=== PATIENT | female | born 1970 | race Caucasian/White ===

== ENCOUNTER 2017-10-17 23:18 | Emergency (ER) | payer OTHER ==
[2017-10-17] MEDS ORDERED: Sodium Chloride 0.9% 1,000 ML IV ONE (23:49)
--- NOTE | 2017-10-17 23:49 | C.PDOC ---
History Of Present Illness The patient presents to the ED for evaluation of abdominal pain, nausea, vomiting and diarrhea which began yesterday. Patient states she ate some [employer] yesterday. She was seen in clinic and started on Bactrim , which she has been taking without relief. Patient denies fever, chills. Time Seen by Provider: 10/17/17 23:30 Chief Complaint (Nursing): Abdominal Pain History Per: Patient History/Exam Limitations: no limitations Onset/Duration Of Symptoms: Hrs Current Symptoms Are (Timing): Still Present Context: Food Severity: Mild Pain Scale Rating Of: 2 Location Of Pain/Discomfort: Diffuse Radiation Of Pain To:: None Quality Of Discomfort: "Pain" Associated Symptoms: Nausea, Vomiting, Diarrhea. denies: Fever, Chills Exacerbating Factors: None Alleviating Factors: None Last Bowel Movement: Today Recent travel outside of the [place]: No Additional History Per: Patient Abnormal Vaginal Bleeding: No Past Medical History Reviewed: Historical Data, Nursing Documentation, Vital Signs Vital Signs: Last Vital Signs Temp 99 F 10/18/17 00:14 Pulse 84 10/18/17 00:14 Resp 14 10/18/17 00:14 BP 138/88 10/18/17 00:14 Pulse Ox 96 10/18/17 01:43 - Medical History PMH: Anemia Surgical History: Appendectomy Family History: States: Unknown Family Hx - Social History Hx Alcohol Use: No Hx Substance Use: No - Immunization History Hx Tetanus Toxoid Vaccination: Yes Hx Influenza Vaccination: No Hx Pneumococcal Vaccination: No Review Of Systems Constitutional: Negative for: Fever, Chills Cardiovascular: Negative for: Chest Pain, Palpitations Respiratory: Negative for: Cough, Shortness of Breath Gastrointestinal: Positive for: Nausea, Vomiting, Abdominal Pain, Diarrhea Genitourinary: Negative for: Dysuria, Frequency, Hematuria, Vaginal Discharge, Vaginal Bleeding Musculoskeletal: Negative for: Back Pain Skin: Negative for: Rash, Lesions, Jaundice, Bruising Neurological: Negative for: Weakness, Numbness Physical Exam - Physical Exam Appears: Non-toxic, No Acute Distress Skin: Warm, Dry Head: Normacephalic Eye(s): bilateral: Normal Inspection Oral Mucosa: Moist Neck: Supple Chest: Symmetrical, No Deformity Cardiovascular: Rhythm Regular Respiratory: No Rales, No Rhonchi, No Wheezing Gastrointestinal/Abdominal: Soft, Tenderness (diffuse ), No Guarding, No Rebound Extremity: Normal ROM, Capillary Refill (less than 2 seconds ) Neurological/Psych: Oriented x3 ED Course And Treatment - Laboratory Results Result Diagrams: 10/18/17 00:07 10/18/17 00:07 O2 Sat by Pulse Oximetry: 96 (on RA) Pulse Ox Interpretation: Normal Progress Note: Bloodwork, urinalysis, CT A/P ordered and reviewed. Pepcid IVP, Toradol IVP, Zofran IVP, and IV Fluids given. Reevaluation Time: 03:17 Reassessment Condition: Improved Medical Decision Making Medical Decision Making: Upon provider reevaluation patient is feeling better, is medically stable, and requires no further treatment in the ED at this time. Patient will be discharged home with Rx for flagyl and zofran . Counseling was provided and all questions were answered regarding diagnosis and need for follow up with dr king. There is agreement to discharge plan. Return if symptoms persist or worsen. Disposition Counseled Patient/Family Regarding: Studies Performed, Diagnosis, Need For Followup, Rx Given - Disposition Referrals: Temo Madrigal MD [Non-Staff] - Disposition: HOME/ ROUTINE Disposition Time: 23:49 Condition: FAIR Additional Instructions: Please return if symptoms recur. Do not take the Bactrim anymore Prescriptions: Metronidazole [Flagyl] 500 mg PO TID #21 tablet Ondansetron ODT [Zofran ODT] 1 odt PO BID PRN #6 odt PRN Reason: Nausea/Vomiting Instructions: Acute Abdomen (Belly Pain), Adult (DC) Forms: [facility] (American), Work Excuse - Clinical Impression Clinical Impression: Abdominal pain, Nausea, Diarrhea - Scribe Statement The provider has reviewed the documentation as recorded by the Scribe (Niya Farooq) Provider Attestation: All medical record entries made by the Scribe were at my direction and personally dictated by me. I have reviewed the chart and agree that the record accurately reflects my personal performance of the history, physical exam, medical decision making, and the department course for this patient. I have also personally directed, reviewed, and agree with the discharge instructions and disposition.
[2017-10-18 00:10] LABS: BASO % 0.3 % (0.0-2.0); EOS # 0.2 K/uL (0.0-0.7); EOS % 1.7 % (0.0-4.0); HEMOGLOBIN 13.9 g/dL (11.0-16.0); LYMPH # 1.4 K/uL (1.0-4.3); LYMPH % 14.6 % (20.0-40.0); MEAN CELL VOLUME 84.7 fL (81.0-99.0); MEAN CORPUSCULAR HEMOGLOBIN 29.6 pg (27.0-31.0); MEAN PLATELET VOLUME 7.6 fL (7.2-11.7); MONO # 0.6 K/uL (0.0-0.8); MONO % 6.2 % (0.0-10.0); NEUT # 7.6 K/uL (1.8-7.0); NEUT % 77.2 % (50.0-75.0); RBC 4.69 Mil/uL (3.80-5.20); RED CELL DISTRIBUTION WIDTH 13.5 % (11.5-14.5); WHITE BLOOD COUNT 9.8 K/uL (4.8-10.8)
[2017-10-18] MEDS ORDERED: Sodium Chloride 0.9% 1,000 ML ONE (00:10)
[2017-10-18 00:11] LABS: HCG,QUALITATIVE URINE NEGATIVE (NEGATIVE)
[2017-10-18 00:17] LABS: SQUAMOUS EPITHIAL 2 /hpf (0-5); URINE BACTERIA RARE (<OCC); URINE BILIRUBIN NEGATIVE (NEGATIVE); URINE BLOOD NEGATIVE (NEGATIVE); URINE CLARITY Clear (Clear); URINE COLOR Straw (YELLOW); URINE GLUCOSE (UA) NORMAL (Normal); URINE LEUKOCYTE ESTERASE NEG Leu/uL (Negative); URINE PROTEIN NEGATIVE (NEGATIVE); URINE UROBILINOGEN NORMAL mg/dL (0.2-1.0)
[2017-10-18 00:26] LABS: ALB/GLOB RATIO 1.4 (1.0-2.1); ALBUMIN 4.3 g/dL (3.5-5.0); ALT/SGPT 70 U/L (9-52); AST/SGOT 29 U/L (14-36); BLOOD UREA NITROGEN 10 mg/dL (7-17); CALCIUM 9.2 mg/dl (8.6-10.4); GFR NON-AFRICAN AMERICAN > 60; LIPASE 96 U/L (23-300)
[2017-10-18 01:29] VITALS: O2SAT 96
[2017-10-18] MEDS ORDERED: Iodixanol 320 MG/ML 100 ML BOTTLE IV ONE (01:52)
[2017-10-18] MEDS ORDERED: metroNIDAZOLE IV 500 mg/100 ml 500 MG/100 ML BAG IVPB SCH (03:15)
[2017-10-18 03:20] VITALS: BP 97/63; PULSE 70; RESP 16; TEMP 99
[2017-10-18] MEDS ORDERED: metroNIDAZOLE IV 500 mg/100 ml 500 MG/100 ML BAG IVPB ONE (03:20)
[2017-10-18] MEDS ORDERED: metroNIDAZOLE IV 500 mg/100 ml 500 MG/100 ML BAG ONE (03:25)
--- NOTE | 2017-10-18 11:57 | CT ---
Date of service: 10/18/2017 PROCEDURE: CT Abdomen and Pelvis with contrast HISTORY: abd pain COMPARISON: None. TECHNIQUE: Following the intravenous administration of iodinated contrast material, a CT examination of the abdomen and pelvis performed from the domes of the diaphragms to the symphysis pubis with reformatted datasets provided in axial, sagittal and coronal planes. Oral contrast was not administered as per referring physician request. Contrast dose: Visipaque 320, 100 cc Radiation dose: Total exam DLP = 842.95 mGy-cm. This CT exam was performed using one or more of the following dose reduction techniques: Automated exposure control, adjustment of the mA and/or kV according to patient size, and/or use of iterative reconstruction technique. FINDINGS: LOWER THORAX: Unremarkable. LIVER: Diminished attenuation of the liver is compatible hepatic steatosis without mass or intrahepatic biliary dilatation appreciated. GALLBLADDER AND BILE DUCTS: Unremarkable. PANCREAS: Unremarkable. No gross lesion or ductal dilatation. SPLEEN: Unremarkable. ADRENALS: Unremarkable. No mass. KIDNEYS AND URETERS: Unremarkable. No hydronephrosis. No solid mass. VASCULATURE: Unremarkable. No aortic aneurysm. BOWEL: Small and large-bowel do not appear obstructed. However, there is thickening of the ileum including the terminal segment in a pattern suspicious for segmental enteritis. This may be an infectious or inflammatory process though ischemic etiologies not completely excluded. Limited perienteric reactive changes are identified. APPENDIX: Not identified. No CT evidence of appendicitis. PERITONEUM: No prominent ascites or free intra peritoneal gas. However, shotty central mesenteric and pericecal lymph nodes may indicate limited mesenteric adenitis. LYMPH NODES: Unremarkable. No enlarged lymph nodes. BLADDER: Unremarkable. REPRODUCTIVE: Trace right adnexal fluid. BONES: No acute fracture. OTHER FINDINGS: None. IMPRESSION: 1. Findings suspicious for distal segmental enteritis affecting the ileum. Crohn's disease is not excluded as well as others. Infectious enteritis is including the differs diagnosis as well as others. Clinically correlate further. No abscess or free intrarenal gas identified. 2. Hepatic steatosis. 3. Trace right adnexal fluid identified. Concordant preliminary report from [facility], 10/18/2017.
== END 2017-10-18 04:24 | disposition home or self-care (01) ==
LOC: C.ER 23:18
DX: R11.2 Nausea with vomiting, unspecified (principal); R10.9 Unspecified abdominal pain; R19.7 Diarrhea, unspecified
CPT/HCPCS: 74177; 80053; 81001; 83690; 84703; 85025; 96374; 96375; 99283; J1885; J2405; J7030; Q9967

== ENCOUNTER 2017-11-01 00:18 | Inpatient (IN) | payer OTHER ==
[2017-11-01] MEDS ORDERED: Sodium Chloride 0.9% 1,000 ML IV STA ×2 (01:12→03:01)
[2017-11-01] MEDS ORDERED: Sodium Chloride 0.9% 1,000 ML ONE (01:19)
[2017-11-01 01:24] LABS: BASO % 0.4 % (0.0-2.0); EOS # 0.3 K/uL (0.0-0.7); EOS % 3.1 % (0.0-4.0); HEMOGLOBIN 14.1 g/dL (11.0-16.0); LYMPH % 33.5 % (20.0-40.0); MEAN CELL VOLUME 84.4 fL (81.0-99.0); MEAN CORPUSCULAR HEMOGLOBIN 29.5 pg (27.0-31.0); MEAN CORPUSCULAR HGB CONC 34.9 g/dL (33.0-37.0); MEAN PLATELET VOLUME 7.9 fL (7.2-11.7); MONO # 0.7 K/uL (0.0-0.8); MONO % 7.9 % (0.0-10.0); NEUT # 4.9 K/uL (1.8-7.0); NEUT % 55.1 % (50.0-75.0); NRBC % 0.1 % (0.0-2.0); RBC 4.77 Mil/uL (3.80-5.20); RED CELL DISTRIBUTION WIDTH 13.3 % (11.5-14.5); WHITE BLOOD COUNT 8.9 K/uL (4.8-10.8)
[2017-11-01 01:42] LABS: ALB/GLOB RATIO 1.5 (1.0-2.1); ALT/SGPT 88 U/L (9-52); AST/SGOT 43 U/L (14-36); BLOOD UREA NITROGEN 15 mg/dL (7-17); CALCIUM 10.1 mg/dl (8.6-10.4); GFR NON-AFRICAN AMERICAN > 60; LIPASE 120 U/L (23-300)
[2017-11-01 01:47] LABS: SQUAMOUS EPITHIAL 1 /hpf (0-5); URINE BACTERIA RARE (<OCC); URINE BILIRUBIN NEGATIVE (NEGATIVE); URINE CLARITY Clear (Clear); URINE COLOR Yellow (YELLOW); URINE GLUCOSE (UA) NORMAL (Normal); URINE LEUKOCYTE ESTERASE NEG Leu/uL (Negative); URINE PROTEIN NEGATIVE (NEGATIVE); URINE UROBILINOGEN NORMAL mg/dL (0.2-1.0)
[2017-11-01 01:49] LABS: URINE BLOOD NEGATIVE (NEGATIVE)
--- NOTE | 2017-11-01 01:51 | C.PDOC ---
"History Of Present Illness 47 year old female, with PMHx of anemia and appendectomy, presents to the emergency department with complaints of abdominal pain x1 day, associated with nausea, vomiting, and diarrhea. Patient states she was here 2 weeks ago with same pain that lasted for a week and states she was discharged on Flagyl. She reports associated fever of 102 orally and denies SOB, chest pain, dysuria, rash , or recent travel. Time Seen by Provider: 11/01/17 00:50 Chief Complaint (Nursing): Abdominal Pain History Per: Patient History/Exam Limitations: no limitations Onset/Duration Of Symptoms: Days Current Symptoms Are (Timing): Still Present Past Medical History Reviewed: Historical Data, Nursing Documentation, Vital Signs Vital Signs: Last Vital Signs Temp 97.6 F 11/01/17 06:14 Pulse 60 11/01/17 06:14 Resp 16 11/01/17 06:14 BP 147/78 11/01/17 06:14 Pulse Ox 98 11/01/17 06:14 - Medical History PMH: Anemia Surgical History: Appendectomy Family History: States: No Known Family Hx - Social History Hx Alcohol Use: No Hx Substance Use: No - Immunization History Hx Tetanus Toxoid Vaccination: Yes Hx Influenza Vaccination: No Hx Pneumococcal Vaccination: No Review Of Systems Except As Marked, All Systems Reviewed And Found Negative. Constitutional: Positive for: Fever Cardiovascular: Negative for: Chest Pain Respiratory: Negative for: Shortness of Breath Gastrointestinal: Positive for: Nausea, Vomiting, Abdominal Pain, Diarrhea Genitourinary: Negative for: Dysuria Skin: Negative for: Rash Physical Exam - Physical Exam Additional Physical Exam Comments: Constitutional: No acute distress. Head: Normocephalic. Atraumatic. Eyes: PERRL. ENT: Moist mucous membranes. Neck: Supple. Cardiovascular: Regular rate. Radial pulse 2+ bilaterally. Chest: No tenderness. Respiratory: Clear to auscultation bilaterally. GI: RUQ tenderness. Back: No CVA tenderness. Musculoskeletal: No tenderness or swelling of extremities. Skin: No rash. Neurologic: Alert, no focal deficit. ED Course And Treatment - Laboratory Results Result Diagrams: 11/01/17 01:21 11/01/17 01:21 O2 Sat by Pulse Oximetry: 95 (RA) Pulse Ox Interpretation: Normal - CT Scan/US CT Abd/Pel Other Rad Studies (CT/US): Read By Radiologist, Radiology Report Reviewed CT/US Interpretation: FINDINGS: Lung bases: Atelectasis posterior lungs. ABDOMEN: Liver: Fatty infiltration of the liver. Gallbladder and bile ducts: Gallstone in the gallbladder neck. Gallbladder otherwise unremarkable. No ductal dilation. Pancreas: Unremarkable. No mass. No ductal dilation. Spleen: Unremarkable. No splenomegaly. Adrenals: Unremarkable. No mass. Kidneys and ureters: Unremarkable. No solid mass. No hydronephrosis. Stomach and bowel: Unremarkable. No obstruction. No mucosal thickening. PELVIS: Appendix: No findings to suggest acute appendicitis. Bladder: Unremarkable. No mass. Reproductive: Unremarkable as visualized. ABDOMEN and PELVIS: SARAH MCDUFFIE | Preliminary Radiology Report. CONFIDENTIALITY STATEMENT. This report is intended only for the use of the referring physician, and only in accordance with law, If you received this in error, call [phone]. Page 2 of 2. Intraperitoneal space: Unremarkable. No free air. No significant fluid collection. Bones/joints: No acute fracture. No dislocation. Soft tissues: Unremarkable. Vasculature: Unremarkable. No abdominal aortic aneurysm. Lymph nodes: Unremarkable. No enlarged lymph nodes. IMPRESSION: Gallstone in the gallbladder neck. Gallbladder otherwise unremarkable. Ultrasound evaluation may. be helpful if indicated. US Abdomen Other Rad Studies (CT/US): Read By Radiologist, Radiology Report Reviewed CT/US Interpretation: FINDINGS: Liver: Fatty infiltration of the liver. No intrahepatic bile duct dilation. Gallbladder: Stones fill the gallbladder. Gallbladder sludge is noted. Gallbladder wall measures. mildly prominent in thickness at 3.1 mm. Negative sonographic Anderson's sign. Common bile duct: Unremarkable as visualized. No stones. No dilation. Pancreas: Unremarkable as visualized. Kidneys: Unremarkable. No stones. No solid mass. No hydronephrosis. Spleen: Unremarkable. No splenomegaly. Aorta: Unremarkable. No aneurysm. Inferior vena cava: Unremarkable. IMPRESSION: 1. Fatty infiltration of the liver. 2. Stones fill the gallbladder. Gallbladder sludge is noted. Gallbladder wall measures mildly. prominent in thickness at 3.1 mm. Negative sonographic Anderson's sign. Medical Decision Making Medical Decision Making: Impression: Abdominal pain Plan: -Bloodwork -Urinalysis -IV Fluids -Toradol -Zofran -CT Abd/Pel -US Abdomen Dr. Arago/Surgical service will re-evaluate patient. Dr. Brandt accepts patient to medical service. Disposition - Disposition Disposition: HOSPITALIZED Disposition Time: 05:33 Condition: FAIR - Clinical Impression Clinical Impression: Abdominal pain - Scribe Statement The provider has reviewed the documentation as recorded by the Brentonibkeith Desai Provider Attestation: All medical record entries made by the Brentonibkeith were at my direction and personally dictated by me. I have reviewed the chart and agree that the record accurately reflects my personal performance of the history, physical exam, medical decision making, and the department course for this patient. I have also personally directed, reviewed, and agree with the discharge instructions and disposition."
[2017-11-01] MEDS ORDERED: Iodixanol 320 MG/ML 100 ML BOTTLE IV ONE (02:58)
--- NOTE | 2017-11-01 06:32 | CP.PCM.CON ---
History of Present Illness - History of Present Illness History of Present Illness: General surgery consult note for Dr. Talib Loza, PGY-2 Pt S & E at bedside at 0605 47F w/no sig PMH consulted for abdominal pain x 2 weeks. Pt reports diffuse, intermittent, cramping abdominal pain that radiates to the back with associated diarrhea x 1 week, fevers (Tmax 102 at home), emesis x 6 (nb,nb), rhinorrhea, sinus congestion, and poor appetite. Pt reports over last week. Admits to weakness/fatigue. Denies constipation, dysuria, hematuria, other complaints. In ED- CT ab w/gallstones in GB neck, otherwise unremarkable. Ab U/S w/ cholelithiasis, GB sludge, wall mildly prominent -3.1 mm. Afebrile, no leukocytosis. Mild transaminitis. T bili WNL. PMH: Denies PSH: Appy All: Cipro SH: Denies ETOH, tobacco or illicit drug use FH: Non contributory PMD: Abraham Lockhart Review of Systems - Review of Systems All systems: reviewed and no additional remarkable complaints except - Constitutional Constitutional: Fever, Weakness. absent: Chills - EENT Nose/Mouth/Throat: Sinus Pressure. absent: Sore Throat - Cardiovascular Cardiovascular: absent: Chest Pain - Respiratory Respiratory: Cough, Excessive Mucous Production - Gastrointestinal Gastrointestinal: Abdominal Pain, Cramping, Diarrhea, Nausea, Vomiting. absent : Constipation, Hematemesis, Hematochezia - Genitourinary Genitourinary: absent: Dysuria, Hematuria - Musculoskeletal Musculoskeletal: Back Pain - Integumentary Integumentary: absent: Rash - Neurological Neurological: absent: Weakness - Psychiatric Psychiatric: Change in Appetite (decreased) - Endocrine Endocrine: Fatigue Past Patient History - Infectious Disease Hx of Infectious Diseases: None - Past Social History Smoking Status: Never Smoked - HEMATOLOGICAL/ONCOLOGICAL Hx Anemia: Yes - PSYCHIATRIC Hx Substance Use: No - SURGICAL HISTORY Hx Appendectomy: Yes - ANESTHESIA Hx Anesthesia: Yes Hx Anesthesia Reactions: No Hx Malignant Hyperthermia: No Meds Allergies/Adverse Reactions: Allergies Allergy/AdvReac Type Severity Reaction Status Date / Time ciprofloxacin [From Cipro] Allergy RASH Verified 10/17/17 23:29 ciprofloxacin HCl Allergy RASH Verified 10/17/17 23:29 [From Cipro] Physical Exam - Constitutional Appears: Non-toxic, No Acute Distress - Head Exam Head Exam: ATRAUMATIC, NORMAL INSPECTION, NORMOCEPHALIC - Eye Exam Eye Exam: EOMI, Normal appearance - ENT Exam ENT Exam: Mucous Membranes Moist, Normal Exam - Neck Exam Neck exam: Positive for: Full Rom, Normal Inspection - Respiratory Exam Respiratory Exam: NORMAL BREATHING PATTERN - Cardiovascular Exam Cardiovascular Exam: REGULAR RHYTHM, +S1, +S2 - GI/Abdominal Exam GI & Abdominal Exam: Normal Bowel Sounds, Soft, Tenderness (epigastric, RUQ). absent: Distended, Firm, Guarding, Hernia - Extremities Exam Extremities exam: Positive for: normal inspection. Negative for: tenderness - Neurological Exam Neurological exam: Alert, CN II-XII Intact, Oriented x3 - Psychiatric Exam Psychiatric exam: Normal Affect, Normal Mood - Skin Skin Exam: Dry, Intact, Normal Color, Warm Results - Vital Signs Recent Vital Signs: Last Vital Signs Temp 97.6 F 11/01/17 06:14 Pulse 60 11/01/17 06:14 Resp 16 11/01/17 06:14 BP 147/78 11/01/17 06:14 Pulse Ox 98 11/01/17 06:14 - Labs Result Diagrams: 11/02/17 12:21 11/02/17 12:21 Labs: Laboratory Results - last 24 hr 11/01/17 11/01/17 11/01/17 01:21 01:21 01:28 WBC 8.9 RBC 4.77 Hgb 14.1 Hct 40.3 MCV 84.4 MCH 29.5 MCHC 34.9 RDW 13.3 Plt Count 270 MPV 7.9 Neut % (Auto) 55.1 Lymph % (Auto) 33.5 [place] % (Auto) 7.9 Eos % (Auto) 3.1 Baso % (Auto) 0.4 Neut # (Auto) 4.9 Lymph # (Auto) 3.0 [place] # (Auto) 0.7 Eos # (Auto) 0.3 Baso # (Auto) 0.0 Sodium 144 Potassium 4.2 Chloride 102 Carbon Dioxide 27 Anion Gap 20 BUN 15 Creatinine 0.6 L Est GFR ( Amer) > 60 Est GFR (Non-Af Amer) > 60 Random Glucose 153 H Calcium 10.1 Total Bilirubin 0.4 AST 43 H D ALT 88 H D Alkaline Phosphatase 116 Total Protein 8.4 H Albumin 5.0 Globulin 3.4 Albumin/Globulin Ratio 1.5 Lipase 120 Urine Color Yellow Urine Clarity Clear Urine pH 6.0 Ur Specific [place] 1.013 Urine Protein Negative Urine Glucose (UA) Normal Urine Ketones Negative Urine Blood Negative Urine Nitrate Negative Urine Bilirubin Negative Urine Urobilinogen Normal Ur Leukocyte Esterase Neg Urine WBC (Auto) 1 Urine RBC (Auto) 2 Ur Squamous Epith Cells 1 Urine Bacteria Rare Assessment & Plan - Assessment and Plan (Free Text) Assessment: 47F w/diffuse abdominal pain Plan: Admit to medical service Monitor lab work IV Abx Pain control Further recs pending attending evalaution Will DW Denia Muñoz, PGY-2 - Date & Time Date: 11/01/17 Time: 06:31
--- NOTE | 2017-11-01 07:59 | CT ---
Date of service: 11/01/2017 PROCEDURE: CT Abdomen and Pelvis with intravenous contrast HISTORY: Abdominal pain COMPARISON: CT abdomen and pelvis dated 10/18/2017 TECHNIQUE: Multiple contiguous axial images were performed through the abdomen and pelvis with the use of intravenous contrast. Subsequently, sagittal and coronal reformatted images were obtained. Radiation dose: Total exam DLP = 801 mGy-cm. This CT exam was performed using one or more of the following dose reduction techniques: Automated exposure control, adjustment of the mA and/or kV according to patient size, and/or use of iterative reconstruction technique. FINDINGS: LOWER THORAX: Atelectasis within the posterior lungs. LIVER: Fatty infiltration of the liver. GALLBLADDER AND BILE DUCTS: Gallstone in the gallbladder neck. PANCREAS: Unremarkable. No gross lesion or ductal dilatation. SPLEEN: Unremarkable. ADRENALS: Unremarkable. No mass. KIDNEYS AND URETERS: Unremarkable. No hydronephrosis. No solid mass. VASCULATURE: Unremarkable. No aortic aneurysm. BOWEL: Unremarkable. No obstruction. No gross mural thickening. APPENDIX: No findings to suggest acute appendicitis. PERITONEUM: Unremarkable. No free fluid. No free air. LYMPH NODES: Unremarkable. No enlarged lymph nodes. BLADDER: Unremarkable. REPRODUCTIVE: Unremarkable. BONES: Degenerative changes in the spine. OTHER FINDINGS: None. IMPRESSION: Prominent gallstone measuring up to 1.9 centimeters in the gallbladder neck. Gallbladder otherwise unremarkable. Ultrasound evaluation may be helpful if clinically indicated. Fatty infiltration of the liver. These findings were preliminarily reported at 4:44 a.m. on 11/01/[address] Manohar Rondon from [employer].
--- NOTE | 2017-11-01 12:06 | US ---
Abdominal ultrasound History: Right upper quadrant abdominal pain. Comparison: CT scan dated 11/01/2017 Technique: Real-time sonography was performed through the abdomen. Findings: Liver: 19.3 centimeters in length. Increased echogenicity of the hepatic parenchymal cortex suggestive for fatty infiltration versus hepatic parenchymal disease. Gallbladder: Cholelithiasis. Gallbladder sludge. Additional questionable punctate echogenic calcification at/ near the wall of the gallbladder. Mildly thickened gallbladder wall measuring 3.1 millimeters. Gallbladder wall edema. Negative sonographic Anderson's sign. Common bile duct measures 5 millimeters, within normal limits. Limited visualization of the pancreas. Spleen measures 9 centimeters in length, within normal limits. Visualized aorta and IVC are grossly preserved. Right kidney: 11.3 x 3.6 x 5.3 centimeters. No calculi or hydronephrosis. Left Kidney: 12.1 x 5.3 x 5.5 centimeters. No calculi or hydronephrosis. Impression: Increased echogenicity of the hepatic parenchymal cortex suggestive for fatty infiltration versus hepatic parenchymal disease. Clinical correlation. Cholelithiasis and sludge in the gallbladder. Mild thickening of the gallbladder wall measuring up to 3.1 millimeters. Associated mild gallbladder wall edema. Negative sonographic Anderson's sign. Clinical correlation. Limited visualization of the pancreas. These findings were preliminarily reported at 5:33 a.m. on 11/01/[address] Darin Rondon from [employer].
[2017-11-01] MEDS: Sodium Chloride 0.9% 1,000 ML IV SCH (12:27)
[2017-11-01] MEDS: metroNIDAZOLE IV 500 mg/100 ml 500 MG/100 ML BAG IVPB SCH ×2 (13:56→21:27)
--- NOTE | 2017-11-02 04:37 | HP ---
CHIEF COMPLAINT: The patient is a 47-year-old female. The patient was seen and examined at bedside on 11/01/2017 with a chief complaint of abdominal pain. HISTORY OF PRESENT ILLNESS: Mrs. Isa Braswell is a 47-year-old female with past medical history of anemia, appendectomy. Came to the emergency department with complaining of abdominal pain associated with nausea, vomiting, and diarrhea. The patient states that she was here two weeks ago with the same pain and lasted for a week. She states that she was discharged on Flagyl. She reports associated fever 102 orally. Denies shortness of breath, chest pain, dysuria, or rash. PAST MEDICAL HISTORY: Anemia, appendectomy. FAMILY HISTORY: Father and mother noncontributory. HABITS: No smoking, no drugs, and no ethanol. REVIEW OF SYSTEMS: The patient was seen and examined at the bedside. was sitting on the bedside also. At that moment, no fever but still having abdominal pain. Nausea and vomiting are less. No headache. No chest pain. No palpitation. No dysuria. No hematuria. PHYSICAL EXAMINATION: VITAL SIGNS: Temperature 96.7, pulse 60, respiratory rate 16, blood pressure 147/78. HEENT: Head normocephalic and atraumatic. Eyes PERRLA. Extraocular muscles intact. Conjunctivae clear. Nose patent. Mucous membranes moist. NECK: Supple. No carotid bruit. No JVD or thyromegaly. CHEST: Bilaterally symmetrical. HEART: S1, S2 are positive. LUNGS: Clear to auscultation. ABDOMEN: Soft. Bowel sounds present. No organomegaly. EXTREMITIES: No edema. No cyanosis. NEUROLOGICAL: The patient is awake and alert. Moving all four extremities. No focal deficits. LABORATORY DATA: White blood cells 8.9, hemoglobin 14.1, hematocrit 48.3, platelets 270. Sodium 144, potassium 4.2, BUN 15, creatinine 0.3, glucose 153. ASSESSMENT AND PLAN: Mrs. Isa Braswell is a 47-year-old female with hyperglycemia, came with abdominal pain and history of hypertension. The patient has cholelithiasis, fatty infiltration of the liver, stones filled with gallbladder. Gallbladder sludge is noted. Gallbladder wall mildly prominent thickness at 3.1 mm, negative sonographic Anderson's sign. Seen by the surgical team. History of appendectomy. Failed outpatient treatment. Getting pain control. Getting intravenous fluid. Gastroenterology evaluation ordered. Repeat labs. We will follow up. Maricarmen Brandt MD
[2017-11-02] MEDS: metroNIDAZOLE IV 500 mg/100 ml 500 MG/100 ML BAG IVPB SCH ×3 (05:18→21:44)
--- NOTE | 2017-11-02 08:16 | CP.PCM.CON ---
<Stephie Cordero - Last Filed: 11/02/17 09:01> History of Present Illness - History of Present Illness History of Present Illness: Gastroenterology Fellow/PGY6 Consult Note 47 year old female with no PMH presenting with abdominal pain and vomiting. Patient notes previous ER visit 10/17 for one day of food vomitus and multiple episodes of watery diarrhea with completion of seven day course of Flagyl TID. She notes resolution of symptoms with return of formed daily bowel movements by 10/26/17. She had recurrent watery stools with increased frequency compared to initial ER visit for seven days with spontaneous resolution on Thursday. She notes sudden onset of severe right upper abdominal cramp-like pain with associated food vomitus leading to current admission. Last vomitus episode yesterday and tolerating clear liquid diet. Admits to daily formed stool Thursday and Thursday. Denies fever, chills, sweats, mouth sores, skin sores, eye pain/redness, back pain, bloating, heartburn, melena, hematochezia, or unintentional weight loss. No prior EGD or colonoscopy. Family History- denies stomach cancer, colon cancer, glallbladder disease Social History- denies tobacco, alcohol, illicit drug use Surgical History- appendectomy Review of Systems - Review of Systems Review of Systems: 12-point review of systems negative except for as above Past Patient History - Infectious Disease Hx of Infectious Diseases: None - Past Social History Smoking Status: Never Smoked - HEMATOLOGICAL/ONCOLOGICAL Hx Anemia: Yes - PSYCHIATRIC Hx Substance Use: No - SURGICAL HISTORY Hx Appendectomy: Yes - ANESTHESIA Hx Anesthesia: Yes Hx Anesthesia Reactions: No Hx Malignant Hyperthermia: No Meds Allergies/Adverse Reactions: Allergies Allergy/AdvReac Type Severity Reaction Status Date / Time ciprofloxacin [From Cipro] Allergy RASH Verified 10/17/17 23:29 ciprofloxacin HCl Allergy RASH Verified 10/17/17 23:29 [From Cipro] - Medications Medications: Current Medications Metronidazole (Flagyl) 500 mg in 100 mls @ 100 mls/hr IVPB Q8H [facility] PRN Reason: Protocol Last Admin: 11/02/17 05:18 Dose: 100 mls/hr Ceftriaxone Sodium 1 gm/ (Sodium Chloride) 100 mls @ 100 mls/hr IVPB DAILY [facility] PRN Reason: Protocol Sodium Chloride (Sodium Chloride 0.9%) 1,000 mls @ 100 mls/hr IV .Q10H [facility] Last Admin: 11/01/17 12:27 Dose: 100 mls/hr Morphine Sulfate (Morphine) 2 mg IVP Q4 PRN PRN Reason: Pain, Mild (1-3) Last Admin: 11/01/17 12:33 Dose: 2 mg Ondansetron HCl (Zofran Inj) 4 mg IVP Q6 PRN PRN Reason: Nausea/Vomiting Pantoprazole Sodium (Protonix Inj) 40 mg IVP DAILY [facility] Physical Exam - Constitutional Appears: Non-toxic, No Acute Distress - Head Exam Head Exam: ATRAUMATIC, NORMOCEPHALIC - Eye Exam Eye Exam: EOMI, PERRL. absent: Scleral icterus Pupil Exam: PERRL. absent: Miosis, Mydriatic - ENT Exam ENT Exam: Mucous Membranes Moist, Normal Oropharynx - Neck Exam Neck exam: Positive for: Full Rom, Normal Inspection - Respiratory Exam Respiratory Exam: Clear to Auscultation Bilateral. absent: Rales, Rhonchi, Wheezes - Cardiovascular Exam Cardiovascular Exam: RRR, +S1, +S2. absent: Gallop, Rubs - GI/Abdominal Exam GI & Abdominal Exam: Normal Bowel Sounds, Soft, Tenderness. absent: Distended, Firm, Guarding, Hypoactive Bowel Sounds, Organomegaly, Rebound, Rigid Additional comments: RUQ tenderness to palpation - Extremities Exam Extremities exam: Positive for: normal inspection. Negative for: pedal edema - Neurological Exam Neurological exam: Alert, Oriented x3 - Psychiatric Exam Psychiatric exam: Normal Affect, Normal Mood - Skin Skin Exam: Dry, Intact, Normal Color, Warm Results - Vital Signs Recent Vital Signs: Last Vital Signs Temp 98.3 F 11/02/17 07:55 Pulse 65 11/02/17 07:55 Resp 20 11/02/17 07:55 BP 111/73 11/02/17 07:55 Pulse Ox 95 11/02/17 07:55 - Labs Result Diagrams: 11/01/17 01:21 11/01/17 01:21 Labs: Laboratory Results - last 24 hr 11/01/17 16:12 POC Glucose (mg/dL) 125 H Assessment & Plan - Assessment and Plan (Free Text) Assessment: 47 year old female with no PMH presenting with abdominal pain and vomiting. Active treatment of abdominal pain with note of elevated transaminases in setting of cholelithiasis on U/S and CT A/P IV contrast. No prior EGD or colonoscopy. Plan: -low suspicion for choledocholithiasis/cholangitis- normal bilirubin/ALP, afebrile, no leukocytosis -surgery managing -pending HIDA scan to evaluate for calculous cholecystitis -ordered hepatitis panel with chronic mildly elevated transaminases since 2016 -follow LFT trend -tolerating clear liquid diet -would benefit from cholecystectomy given recurrent biliary colic -follow up HIDA scan and surgery recommendations <Kevin Hdz - Last Filed: 11/02/17 10:30> Meds - Medications Medications: Current Medications Metronidazole (Flagyl) 500 mg in 100 mls @ 100 mls/hr IVPB Q8H [facility] PRN Reason: Protocol Last Admin: 11/02/17 05:18 Dose: 100 mls/hr Ceftriaxone Sodium 1 gm/ (Sodium Chloride) 100 mls @ 100 mls/hr IVPB DAILY [facility] PRN Reason: Protocol Last Admin: 11/02/17 09:41 Dose: 100 mls/hr Sodium Chloride (Sodium Chloride 0.9%) 1,000 mls @ 100 mls/hr IV .Q10H [facility] Last Admin: 11/02/17 08:54 Dose: Not Given Morphine Sulfate (Morphine) 2 mg IVP Q4 PRN PRN Reason: Pain, Mild (1-3) Last Admin: 11/01/17 12:33 Dose: 2 mg Ondansetron HCl (Zofran Inj) 4 mg IVP Q6 PRN PRN Reason: Nausea/Vomiting Pantoprazole Sodium (Protonix Inj) 40 mg IVP DAILY [facility] Last Admin: 11/02/17 09:41 Dose: 40 mg Results - Vital Signs Recent Vital Signs: Last Vital Signs Temp 98.3 F 11/02/17 07:55 Pulse 65 11/02/17 07:55 Resp 20 11/02/17 07:55 BP 111/73 11/02/17 07:55 Pulse Ox 95 11/02/17 07:55 - Labs Result Diagrams: 11/01/17 01:21 11/01/17 01:21 Labs: Laboratory Results - last 24 hr 11/01/17 11/02/17 16:12 08:35 POC Glucose (mg/dL) 125 H Urine HCG, Qual Negative Attending/Attestation - Attestation I have personally seen and examined this patient.: Yes I have fully participated in the care of the patient.: Yes I have reviewed all pertinent clinical information: Yes Notes (Text): 11/02/17 10:24 I have seen and examined patient with GI fellow. Agree with above documentation with the following additions. In brief, this is a 47 year old female without significant medical history who presents to hospital with complaint of abdominal pain and vomiting. Symptoms began two days ago when she experienced sudden onset right sided abdominal pain, 10/10 intensity with associated vomiting following meal consumption. She had a similar episode last month and went to ER, was discharged on antibiotic therapy with resolution of her abdominal pain. Since hospital admission she has not had any recurrent vomiting but continues to endorse epigastric and RUQ pain. She denies fever/ chills, weight loss, or change in bowel habits. No prior endoscopic evaluation. Abdominal pain Nausea, vomiting US imaging reviewed by me showing cholelithiasis, sludge, and thickened GB wall. Normal caliber CBD. Transaminitis - NPO - Continue with antibiotic therapy - HIDA imaging requested by surgical team, follow up results - Continue to monitor LFTs, follow up viral hepatitis panel - Patient would likely benefit from cholecystectomy given recurrent symptoms related to cholelithiasis, follow up surgical recommendations - No further planned GI intervention, will sign off case. Please reconsult as necessary, thank you.
[2017-11-02] MEDS: Sodium Chloride 0.9% 1,000 ML IV SCH ×2 (08:54→19:00)
[2017-11-02 12:29] LABS: BASO % 0.2 % (0.0-2.0); EOS # 0.2 K/uL (0.0-0.7); EOS % 3.2 % (0.0-4.0); HEMOGLOBIN 13.2 g/dL (11.0-16.0); LYMPH # 1.6 K/uL (1.0-4.3); LYMPH % 25.5 % (20.0-40.0); MEAN CELL VOLUME 85.5 fL (81.0-99.0); MEAN CORPUSCULAR HEMOGLOBIN 29.3 pg (27.0-31.0); MEAN CORPUSCULAR HGB CONC 34.3 g/dL (33.0-37.0); MEAN PLATELET VOLUME 7.8 fL (7.2-11.7); MONO # 0.4 K/uL (0.0-0.8); MONO % 6.9 % (0.0-10.0); NEUT # 3.9 K/uL (1.8-7.0); NEUT % 64.2 % (50.0-75.0); RBC 4.5 Mil/uL (3.80-5.20); RED CELL DISTRIBUTION WIDTH 13.2 % (11.5-14.5); WHITE BLOOD COUNT 6.1 K/uL (4.8-10.8)
[2017-11-02 12:32] LABS: INR 1.1; PROTHROMBIN TIME 11.9 SECONDS (9.7-12.2)
[2017-11-02 13:14] LABS: ALB/GLOB RATIO 1.5 (1.0-2.1); ALBUMIN 4.3 g/dL (3.5-5.0); ALT/SGPT 85 U/L (9-52); AST/SGOT 48 U/L (14-36); BLOOD UREA NITROGEN 7 mg/dL (7-17); CALCIUM 9.3 mg/dl (8.6-10.4); GFR NON-AFRICAN AMERICAN > 60
[2017-11-02] MEDS ORDERED: Propofol 10 mg/ml Inj (20 ML) ONE (16:14)
[2017-11-02] MEDS ORDERED: Midazolam 2 MG/2 ML VIAL ONE (16:14)
[2017-11-02] MEDS ORDERED: ceFAZolin IV 1 gm in Dextrose 1 GM/50 ML BAG IVPB ONE (16:16)
[2017-11-02] MEDS ORDERED: Bupivacaine-Epi 0.5%-1:200,000 PF Inj ONE (16:16)
[2017-11-02] MEDS ORDERED: Rocuronium 10 mg/ml (5 ml) ONE (16:48)
[2017-11-02] MEDS ORDERED: Succinylcholine Chloride 20 mg/ml Syr (5 ml) IV ONE (16:48)
[2017-11-02] MEDS ORDERED: Neostigmine Methylsulfate 3mg/3ml Syringe IV ONE (16:48)
[2017-11-02] MEDS ORDERED: HYDROmorphone 0.5 mg/0.5 ml ISec IVP PRN (17:38)
--- NOTE | 2017-11-02 17:52 | PCM.SURG1 ---
Surgeon's Initial Post Op Note - Surgeon's Notes Surgeon: Dr. Bueno Wood Grinder Operator: Dr. Nuno Type of Anesthesia: General Endo Anesthesia Administered By: Dr. Vasquez Pre-Operative Diagnosis: symptomatic cholelithiasis Operative Findings: cholelithiasis Post-Operative Diagnosis: see operative report Operation Performed: laparoscopic cholecystectomy Specimen/Specimens Removed: gallbladder Estimated Blood Loss: EBL {In ML}: 20 Blood Products Given: N/A Drains Used: No Drains Post-Op Condition: Good Date of Surgery/Procedure: 11/02/17 Time of Surgery/Procedure: 16:30
[2017-11-02] MEDS ORDERED: Morphine 4 MG/ML VIAL IVP PRN (18:02)
[2017-11-02] MEDS ORDERED: Sodium Chloride 0.9% 1,000 ML IV ONE (19:00)
[2017-11-02 23:14] VITALS: RESP 20
[2017-11-03] MEDS: Sodium Chloride 0.9% 1,000 ML IV SCH ×2 (03:58→15:17)
--- NOTE | 2017-11-03 04:11 | PN ---
DATE: 11/02/2017 SUBJECTIVE: The patient is a 47 years old female. The patient was seen and examined at the bedside in the morning. Whole family, , mother, father, cousins, on the bedside, was getting ready to go for surgery. Still having abdominal pain. No nausea or vomiting. No headache, no dizziness. No chest pain or palpitation. No fever. No chills. No hematuria. No hematochezia. PHYSICAL EXAMINATION: VITAL SIGNS: Temperature 98.3, pulse 65, respiratory rate 20, blood pressure 111/73, pulse oximetry 95. HEENT: Head normocephalic and atraumatic. Eyes, PERRLA. Extraocular muscles intact. Conjunctiva clear. Nose patent. NECK: Supple. No carotid bruits. No JVD or thyromegaly. CHEST: Bilaterally symmetrical. HEART: S1 and S2 positive. LUNGS: Clear to auscultation. ABDOMEN: Soft. Bowel sounds present. No organomegaly. EXTREMITIES: No edema. No cyanosis. NEUROLOGIC: The patient awake, alert moving all 4 extremities. No focal deficits. LABORATORY DATA: White blood cells 8.5, hemoglobin 14.1, hematocrit 48.3, platelets 270. Sodium 144, potassium 4.2, BUN 15, creatinine 0.6, glucose 153. MEDICATIONS: Metronidazole, ciprofloxacin, NS, Morphine, Zofran, Protonix. ASSESSMENT AND PLAN: Ms. French Moss is a 47 years old female with no significant past medical history admitted with abdominal pain, nausea and vomiting, has elevated transaminases in the setting of cholelithiasis, cholecystitis, no prior EGD or colonoscopy done. Started the patient on IV antibiotics. Low suspicious of choledocholithiasis or cholangitis. Normal bilirubin, afebrile, no leukocytosis. Went for surgery today. GI ordered hepatitis panel with chronically mildly elevated transaminases since 2016. went for surgery today. CAT scan of abdomen and pelvis and ultrasound noted. Plan for laparoscopic cholecystectomy by Damon Bueno MD. Pain management. Repeat labs. We will follow. Maricarmen Brandt MD [facility]
[2017-11-03] MEDS: metroNIDAZOLE IV 500 mg/100 ml 500 MG/100 ML BAG IVPB SCH ×3 (05:06→21:33)
--- NOTE | 2017-11-03 08:37 | CP.PCM.PN ---
Subjective - Date & Time of Evaluation Date of Evaluation: 11/03/17 Time of Evaluation: 06:30 - Subjective Subjective: Pgy1 general surgery progress note for Dr Bueno Patient seen and examined at bedside. Patient complains of subjective fevers, and diffuse abdominal pain. Pain is controlled with medications. Patient denies nausea or vomiting. Patient has not been out of bed or had a bowel movement. Patient reports passing gas. Objective - Vital Signs/Intake and Output Vital Signs (last 24 hours): Temp Pulse Resp BP Pulse Ox 99.4 F 97 H 20 127/75 96 11/03/17 08:24 11/03/17 08:24 11/03/17 08:24 11/03/17 08:24 11/03/17 08:24 Intake and Output: 11/03/17 11/03/17 06:59 18:59 Intake Total 1540 Balance 1540 - Medications Medications: Current Medications Metronidazole (Flagyl) 500 mg in 100 mls @ 100 mls/hr IVPB Q8H [facility] PRN Reason: Protocol Last Admin: 11/03/17 05:06 Dose: 100 mls/hr Ceftriaxone Sodium 1 gm/ (Sodium Chloride) 100 mls @ 100 mls/hr IVPB DAILY [facility] PRN Reason: Protocol Last Admin: 11/02/17 09:41 Dose: 100 mls/hr Sodium Chloride (Sodium Chloride 0.9%) 1,000 mls @ 100 mls/hr IV .Q10H [facility] Last Admin: 11/03/17 03:58 Dose: 100 mls/hr Morphine Sulfate (Morphine) 4 mg IVP Q4 PRN PRN Reason: Pain, severe (8-10) Ondansetron HCl (Zofran Inj) 4 mg IVP Q6 PRN PRN Reason: Nausea/Vomiting Oxycodone/Acetaminophen (Percocet 5/325 Mg Tab) 1 tab PO Q4H PRN PRN Reason: Pain, moderate (4-7) Stop: 11/05/17 18:04 Pantoprazole Sodium (Protonix Inj) 40 mg IVP DAILY [facility] Last Admin: 11/02/17 09:41 Dose: 40 mg Pneumococcal Polyvalent Vaccine (Pneumovax 23 Vaccine) 0.5 ml IM .ONCE ONE Stop: 11/03/17 10:01 - Labs Labs: 11/02/17 12:21 11/02/17 12:21 PT 11.9 SECONDS (9.7-12.2) 11/02/17 12:21 INR 1.1 11/02/17 12:21 - Constitutional Appears: No Acute Distress - Head Exam Head Exam: ATRAUMATIC, NORMAL INSPECTION, NORMOCEPHALIC - Eye Exam Eye Exam: EOMI, Normal appearance - ENT Exam ENT Exam: Mucous Membranes Moist - Neck Exam Neck Exam: Full ROM - Respiratory Exam Respiratory Exam: NORMAL BREATHING PATTERN. absent: Accessory Muscle Use, Respiratory Distress - GI/Abdominal Exam GI & Abdominal Exam: Soft, Tenderness Additional comments: diffuse tenderness on palpation - Extremities Exam Extremities Exam: Full ROM, Normal Inspection - Neurological Exam Neurological Exam: Alert, Awake, Oriented x3 - Psychiatric Exam Psychiatric exam: Normal Affect, Normal Mood - Skin Skin Exam: Intact, Normal Color, Warm Assessment and Plan - Assessment and Plan (Free Text) Assessment: 47 yo F admitted for symptomatic cholelithiasis Plan: - continue to monitor vitals - continue pain management PRN - Zofran for nausea PRN - encourage OOB to chair and ambulation as tolerated - Incentive spirometry Q1 - Change diet to low fat/low cholesterol diet - Plan to D/C tomorrow Plan discussed with Dr Ximena Lane, PGY-1
[2017-11-03 08:47] LABS: HEMOGLOBIN 12.7 g/dL (11.0-16.0); MEAN CELL VOLUME 84.3 fL (81.0-99.0); MEAN CORPUSCULAR HGB CONC 34.4 g/dL (33.0-37.0); MEAN PLATELET VOLUME 7.5 fL (7.2-11.7); RBC 4.37 Mil/uL (3.80-5.20); RED CELL DISTRIBUTION WIDTH 13.2 % (11.5-14.5); WHITE BLOOD COUNT 11.4 K/uL (4.8-10.8)
[2017-11-03 08:54] LABS: ALB/GLOB RATIO 1.4 (1.0-2.1); ALT/SGPT 124 U/L (9-52); AST/SGOT 107 U/L (14-36); BLOOD UREA NITROGEN 7 mg/dL (7-17); CALCIUM 8.7 mg/dl (8.6-10.4); GFR NON-AFRICAN AMERICAN > 60
[2017-11-03] MEDS ORDERED: Pneumococcal 23-Valent Vaccine IM ONE (10:00)
[2017-11-03] MEDS: Oxycodone/Acetaminophen 5/325 mg Tab PO PRN ×2 (10:47→19:33)
--- NOTE | 2017-11-04 02:44 | PN ---
DATE: 11/03/2017 SUBJECTIVE: The patient is a 47-year-old female. The patient was seen and examined at bedside on 11/03/2017. She is on the bed with her two daughters. early of the day, she has episode of vomiting especially, after lunch but right now she is doing very well, complaining about abdominal pain that is diffuse, getting better with medication. The patient passes gas. No fever. No chills. No hematoma, hematochezia. PHYSICAL EXAMINATION: VITAL SIGNS: Temperature 99.4, pulse 97, respiratory rate 20, blood pressure 127/75, pulse oximetry 96. HEENT: Normocephalic and atraumatic. Eyes PERRLA. Extraocular muscles intact. Conjunctivae clear. Nose patent. Mucous membranes moist. NECK: Supple. No carotid bruit, JVD, or thyromegaly. CHEST: Bilaterally symmetrical. HEART: S1 and S2 positive. LUNGS: Clear to auscultation. ABDOMEN: Soft. Tender at the place of the surgery. EXTREMITIES: No edema. No cyanosis. NEUROLOGIC: The patient is awake, alert. Follows simple commands. MEDICATIONS: Flagyl, ceftriaxone, NS, morphine, Zofran, oxycodone, pantoprazole, and Pneumovax. LABORATORY DATA: White blood cell 6.2, hemoglobin 13.2, hematocrit 38.5, platelets 256,000. Sodium 140, potassium 3.9, BUN 7, creatinine 0.3, glucose 106. ASSESSMENT AND PLAN: The patient is a 47-year-old female admitted for symptomatic cholelithiasis, cholecystitis, status post cholecystectomy. Today has episode of nausea, vomiting, taking Zofran. Encouraged out of bed for ambulation. Tolerating her food very well, has incentive spirometry on the bedside. Change diet to low fat, low cholesterol diet. Discharge to home tomorrow if patient will be stabilized. Discussion done with surgical garment assembler. Repeat labs. We will follow up. Maricarmen Brandt MD [facility]
[2017-11-04] MEDS: metroNIDAZOLE IV 500 mg/100 ml 500 MG/100 ML BAG IVPB SCH (05:14)
[2017-11-04 08:08] VITALS: BP 135/84; PULSE 87; TEMP 98.9; O2SAT 95
[2017-11-04 08:58] LABS: HEMOGLOBIN 13.1 g/dL (11.0-16.0); MEAN CELL VOLUME 85.4 fL (81.0-99.0); MEAN CORPUSCULAR HEMOGLOBIN 29.3 pg (27.0-31.0); MEAN CORPUSCULAR HGB CONC 34.3 g/dL (33.0-37.0); MEAN PLATELET VOLUME 7.5 fL (7.2-11.7); RBC 4.48 Mil/uL (3.80-5.20); RED CELL DISTRIBUTION WIDTH 13.1 % (11.5-14.5); WHITE BLOOD COUNT 8.5 K/uL (4.8-10.8)
[2017-11-04 09:19] LABS: BLOOD UREA NITROGEN 7 mg/dL (7-17); CALCIUM 9.2 mg/dl (8.6-10.4); GFR NON-AFRICAN AMERICAN > 60
[2017-11-04] MEDS: Oxycodone/Acetaminophen 5/325 mg Tab PO PRN (09:43)
--- NOTE | 2017-11-04 14:09 | CP.PCM.PN ---
Subjective - Date & Time of Evaluation Date of Evaluation: 11/04/17 Time of Evaluation: 07:30 - Subjective Subjective: PGY-1 general surgery note for Dr Bueno Patient is seen and examine at bedside. Patient states feeling much better, with her pain controlled with pain medications. Patient had one episode of vomiting yesterday afternoon, but had no new episodes overnight or this morning. Patient denies fever, chills, nausea, vomiting. Patient is passing gas but no BM yet. Patient is OOB and ambulating and tolerating low fat/low cholesterol diet. Objective - Vital Signs/Intake and Output Vital Signs (last 24 hours): Temp Pulse Resp BP Pulse Ox 98.9 F 87 20 135/84 95 11/04/17 08:05 11/04/17 08:05 11/04/17 08:05 11/04/17 08:05 11/04/17 08:05 Intake and Output: 11/04/17 11/04/17 06:59 18:59 Intake Total 340 460 Balance 340 460 - Labs Labs: 11/04/17 08:45 11/04/17 08:45 PT 11.9 SECONDS (9.7-12.2) 11/02/17 12:21 INR 1.1 11/02/17 12:21 - Constitutional Appears: Well, Non-toxic, No Acute Distress - Head Exam Head Exam: ATRAUMATIC, NORMAL INSPECTION, NORMOCEPHALIC - Eye Exam Eye Exam: EOMI, Normal appearance - ENT Exam ENT Exam: Mucous Membranes Moist, Normal Exam - Neck Exam Neck Exam: Full ROM, Normal Inspection - Respiratory Exam Respiratory Exam: NORMAL BREATHING PATTERN. absent: Accessory Muscle Use, Respiratory Distress - GI/Abdominal Exam GI & Abdominal Exam: Soft - Extremities Exam Extremities Exam: Full ROM, Normal Inspection - Back Exam Back Exam: NORMAL INSPECTION - Neurological Exam Neurological Exam: Alert, Awake, Normal Gait, Oriented x3 - Psychiatric Exam Psychiatric exam: Normal Affect, Normal Mood - Skin Skin Exam: Intact, Normal Color, Warm Assessment and Plan - Assessment and Plan (Free Text) Assessment: 47 yo female with symptomatic cholelithiasis s/p lap cholecystectomy pod #2 Plan: Patient is clear for discharge as per surgery Patient to avoid heavy weights for 6 weeks Patient to f/u with Dr Bueno in 2 weeks Patient to continue pain meds and stool softeners as needed Patient to take Cepacol lonzeges as needed for throat soreness work note given to patient to excuse her from work until seen by Dr Bueno in 2 weeks. Plan to be discussed with Dr Ximena Lane, PGY-1
--- NOTE | 2017-11-04 17:35 | CP.PCM.PN ---
Subjective - Date & Time of Evaluation Date of Evaluation: 11/04/17 Time of Evaluation: 11:00 - Subjective Subjective: Alert, orientedx3, mild abdominal pain, tolerating diet, no acute distress. Objective - Vital Signs/Intake and Output Vital Signs (last 24 hours): Temp Pulse Resp BP Pulse Ox 98.9 F 87 20 135/84 95 11/04/17 08:05 11/04/17 08:05 11/04/17 08:05 11/04/17 08:05 11/04/17 08:05 Intake and Output: 11/04/17 11/04/17 06:59 18:59 Intake Total 340 460 Balance 340 460 - Labs Labs: 11/04/17 08:45 11/04/17 08:45 PT 11.9 SECONDS (9.7-12.2) 11/02/17 12:21 INR 1.1 11/02/17 12:21 Assessment and Plan - Assessment and Plan (Free Text) Assessment: Patient s/p Lap cholecystectomy post op #2, alert and orientedx3, out of bed, ambulating, no acute distress. Cleared by surgery, discussed with DR Brandt, plan for discharge home today. Advised to follow up with PMD in 1 week, also follow up with DR Bueno in 2 weeks.
--- NOTE | 2017-11-11 08:30 | OP ---
PROCEDURE DATE: 11/02/2017 SURGEON: Damon Bueno IT SECURITY CONSULTING DIRECTOR: OPERATION: Laparoscopic cholecystectomy. INDICATION: Cholecystitis. DESCRIPTION OF PROCEDURE: The patient was brought to the operating room, placed on the table in supine position. After induction of general anesthesia, the patient was prepped and draped in the usual sterile fashion. At this point, timeout was performed confirming appropriate patient, surgery, location, and laterality. The abdomen was then entered with a Veress needle through the umbilicus to a opening pressure of 5 mmHg. The abdomen was insufflated. Then, using a Visiport, the 5 mm port was placed through the umbilicus. This was done without complication. The abdomen was entered safely after pneumoperitoneum was established. The underneath the umbilicus was inspected . Then, our attention was directed to placing a remainder port. Another 5 mm port was placed at the subxiphoid region as well as another one in the right upper quadrant 2 cm below the subcostal margin. At this point, a grasper was placed on the fundus of the gallbladder which was retracted cephalad, exposing the triangle. Using [place] and blunt dissection, the triangle was dissected out obtaining a critical view with the cystic duct anteriorly, cystic artery posteriorly, and the surface of the liver behind that. At this point, it was very clear that there was only one structure entering the gallbladder which we identified to be a cystic duct. Clips were placed to the proximal side, one on the distal side, and then, this was cut using sharp dissection. The same technique was then taken for the cystic artery as well. After this, using cautery, the gallbladder was removed from the gallbladder fossa of the liver bed which was inspected for bleeding which there was none. Adequate hemostasis was achieved. The gallbladder was then placed in a bag and removed through the umbilicus. The right upper quadrant was irrigated. There was no evidence of further bleeding or bile staining. Pneumoperitoneum was released. All the ports were taken out under visualization. No bleeding was seen. The umbilical 12 mm port was closed with 2-0 Vicryl, two interrupted sutures, and then the skin was closed with 4-0 Monocryl. The patient was extubated successfully and sent to PACU, tolerated the procedure well. Noticed no complications. Estimated blood loss was 5 mL. There was no Beltrán placed during this. Yunier LisaDO Damon Bueno MD
== END 2017-11-04 13:39 | disposition home or self-care (01) | DRG 494 ==
LOC: C.ER 00:18 → C.9E 06:08 → OBSVTOIN 06:08 → C.3T 06:08
PROVIDERS: ADMIT Internal Medicine; ATTEND Internal Medicine
PROC: 0FT44ZZ Resection of Gallbladder, Percutaneous Endoscopic Approach (ICD-10-PCS; principal; 2017-11-02 16:00)
DX: K80.10 Calculus of gallbladder with chronic cholecystitis without obstruction (principal); I10 Essential (primary) hypertension; R73.9 Hyperglycemia, unspecified; Z90.49 Acquired absence of other specified parts of digestive tract; K76.0 Fatty (change of) liver, not elsewhere classified

== ENCOUNTER 2018-01-29 18:26 | Emergency (ER) | payer OTHER ==
[2018-01-29 18:54] LABS: SQUAMOUS EPITHIAL 2 /hpf (0-5); URINE BILIRUBIN NEGATIVE (NEGATIVE); URINE BLOOD NEGATIVE (NEGATIVE); URINE CLARITY Clear (Clear); URINE COLOR Yellow (YELLOW); URINE GLUCOSE (UA) NORMAL (Normal); URINE LEUKOCYTE ESTERASE NEG Leu/uL (Negative); URINE PROTEIN NEGATIVE (NEGATIVE); URINE UROBILINOGEN NORMAL mg/dL (0.2-1.0)
[2018-01-29 18:56] LABS: HCG,QUALITATIVE URINE NEGATIVE (NEGATIVE)
[2018-01-29] MEDS ORDERED: Sodium Chloride 0.9% 1,000 ML IV ONE (19:08)
--- NOTE | 2018-01-29 19:23 | C.PDOC ---
History Of Present Illness Patient presents to the ER with a complaint of a sharp stabbing RUQ pain radiating to the right flank for the past 2 days, worsening today. Denies fever, chills, or dysuria. Time Seen by Provider: 01/29/18 19:08 Chief Complaint (Nursing): Abdominal Pain History Per: Patient History/Exam Limitations: no limitations Onset/Duration Of Symptoms: Days (2) Current Symptoms Are (Timing): Still Present Severity: Moderate Pain Scale Rating Of: 4 Location Of Pain/Discomfort: RUQ Radiation Of Pain To:: Flank (Right) Quality Of Discomfort: Unable To Describe Associated Symptoms: denies: Fever, Chills, Urinary Symptoms (Dysuria) Exacerbating Factors: None Alleviating Factors: None Recent travel outside of the [place]: No Abnormal Vaginal Bleeding: No Past Medical History Reviewed: Historical Data, Nursing Documentation, Vital Signs Vital Signs: Last Vital Signs Temp 98.2 F 01/29/18 18:37 Pulse 58 L 01/29/18 18:37 Resp 19 01/29/18 18:37 BP 133/81 01/29/18 18:37 Pulse Ox 98 01/29/18 18:37 - Medical History PMH: Anemia Surgical History: Appendectomy, Cholecystectomy - [facility] Procedures RESECTION OF GALLBLADDER, PERCUTANEOUS ENDOSCOPIC APPROACH (11/01/17) Family History: States: No Known Family Hx - Social History Hx Alcohol Use: No Hx Substance Use: No - Immunization History Hx Tetanus Toxoid Vaccination: Yes Hx Influenza Vaccination: Yes Hx Pneumococcal Vaccination: No Review Of Systems Constitutional: Negative for: Fever, Chills Cardiovascular: Negative for: Chest Pain, Palpitations Respiratory: Negative for: Cough Gastrointestinal: Positive for: Abdominal Pain (Radiating to right flank). Negative for: Nausea, Vomiting Genitourinary: Negative for: Dysuria Physical Exam - Physical Exam Appears: Non-toxic Skin: Warm, Dry Head: Normacephalic Oral Mucosa: Moist Chest: Symmetrical, No Tenderness Cardiovascular: Rhythm Regular Respiratory: No Rales, No Rhonchi, No Wheezing Gastrointestinal/Abdominal: Bowel Sounds (Good), Soft, No Tenderness Back: Other (Right flank tenderness) Neurological/Psych: Oriented x3 ED Course And Treatment - Laboratory Results Result Diagrams: 01/29/18 19:36 01/29/18 19:36 O2 Sat by Pulse Oximetry: 98 (Room air) Pulse Ox Interpretation: Normal Progress Note: CT abd/pel, blood work, and urinalysis ordered. IV fluids, protonix, toradol, and zofran administered. Reevaluation Time: 23:08 Reassessment Condition: Improved Medical Decision Making Medical Decision Making: Upon provider reevaluation patient is feeling better, is medically stable, and requires no further treatment in the ED at this time. Patient will be discharged home with Rx for flagyl. Counseling was provided and all questions were answered regarding diagnosis and need for follow up with the referred clinic. There is agreement to discharge plan. Return if symptoms persist or worsen. Disposition Counseled Patient/Family Regarding: Studies Performed, Diagnosis, Need For Followup - Disposition Referrals: [facility] [Outside] [facility] [Outside] Disposition: HOME/ ROUTINE Disposition Time: 19:23 Condition: FAIR Additional Instructions: Please return if symptoms recur Prescriptions: metroNIDAZOLE IV 500 mg/100 ml [Flagyl IV] 500 mg IV TID #21 bag Instructions: Acute Abdomen (Belly Pain), Adult (DC) Forms: [employer] (Moroccan), Work Excuse Print Language: KOREAN - Clinical Impression Clinical Impression: Abdominal pain, Enteritis - Scribe Statement The provider has reviewed the documentation as recorded by the Scribkeith Solares All medical record entries made by the Brentonibe were at my direction and personally dictated by me. I have reviewed the chart and agree that the record accurately reflects my personal performance of the history, physical exam, medical decision making, and the department course for this patient. I have also personally directed, reviewed, and agree with the discharge instructions and disposition.
[2018-01-29] MEDS ORDERED: Sodium Chloride 0.9% 1,000 ML ONE (19:26)
[2018-01-29] MEDS ORDERED: Iodixanol 320 MG/ML 100 ML BOTTLE IV ONE (19:38)
[2018-01-29 19:40] LABS: BASO % 0.4 % (0.0-2.0); EOS # 0.1 K/uL (0.0-0.7); EOS % 1.8 % (0.0-4.0); HEMOGLOBIN 13.4 g/dL (11.0-16.0); LYMPH # 2.9 K/uL (1.0-4.3); LYMPH % 35.9 % (20.0-40.0); MEAN CELL VOLUME 85.1 fL (81.0-99.0); MEAN CORPUSCULAR HEMOGLOBIN 28.4 pg (27.0-31.0); MEAN CORPUSCULAR HGB CONC 33.4 g/dL (33.0-37.0); MEAN PLATELET VOLUME 7.1 fL (7.2-11.7); MONO # 0.5 K/uL (0.0-0.8); MONO % 6.7 % (0.0-10.0); NEUT # 4.5 K/uL (1.8-7.0); NEUT % 55.2 % (50.0-75.0); RBC 4.7 Mil/uL (3.80-5.20); RED CELL DISTRIBUTION WIDTH 13.3 % (11.5-14.5); WHITE BLOOD COUNT 8.1 K/uL (4.8-10.8)
[2018-01-29 19:48] LABS: INR 1.1; PROTHROMBIN TIME 11.5 SECONDS (9.7-12.2)
[2018-01-29 19:55] LABS: ALB/GLOB RATIO 1.4 (1.0-2.1); ALBUMIN 4.3 g/dL (3.5-5.0); ALT/SGPT 47 U/L (9-52); AST/SGOT 32 U/L (14-36); BLOOD UREA NITROGEN 15 mg/dL (7-17); CALCIUM 9.2 mg/dl (8.6-10.4); GFR NON-AFRICAN AMERICAN > 60; LIPASE 128 U/L (23-300)
[2018-01-29 22:26] VITALS: RESP 14
[2018-01-29 23:29] VITALS: BP 118/73; PULSE 57; TEMP 97.9; O2SAT 96
--- NOTE | 2018-01-30 10:05 | CT ---
Date of service: 01/29/2018 PROCEDURE: CT Abdomen and Pelvis with contrast HISTORY: ruq pain COMPARISON: 11/01/2017. TECHNIQUE: CT scan of the abdomen and pelvis was performed after administration of intravenous contrast. Oral contrast was not administered. Coronal and sagittal reformatted images were obtained. Contrast dose: Radiation dose: Total exam DLP = 851.31 mGy-cm. This CT exam was performed using one or more of the following dose reduction techniques: Automated exposure control, adjustment of the mA and/or kV according to patient size, and/or use of iterative reconstruction technique. FINDINGS: LOWER THORAX: The visualized lungs are clear. LIVER: Mild hepatomegaly and fatty liver. Normal homogeneous enhancement. No gross lesion or ductal dilatation. GALLBLADDER AND BILE DUCTS: Surgical absent. PANCREAS: Normal in size with homogeneous enhancement. No gross lesion or ductal dilatation. SPLEEN: Normal in size and appearance. ADRENALS: No discrete nodule. KIDNEYS AND URETERS: Normal in size with homogeneous enhancement. No hydronephrosis. No solid mass. VASCULATURE: No aortic aneurysm. BOWEL: Evaluation of the bowel is limited in the absence of oral contrast. The proximal small bowel loops are normal in caliber. There is mild dilatation of fluid-filled mid and distal small bowel loops. The colon is grossly normal in appearance. No bowel wall thickening or obstruction. APPENDIX: Normal appendix. PERITONEUM: No free fluid. No free air. LYMPH NODES: No enlarged lymph nodes. BLADDER: Well distended and normal in appearance. REPRODUCTIVE: The uterus is normal in size. BONES: No acute fracture. Within normal limits for the patient's age. OTHER FINDINGS: None. IMPRESSION: Mild fluid-filled dilated mid and distal small bowel loops may represent nonspecific infectious/inflammatory enteritis in the appropriate clinical setting. Mild hepatomegaly and fatty liver. A preliminary report was provided by [employer].
== END 2018-01-29 23:28 | disposition home or self-care (01) ==
LOC: C.ER 18:26
DX: K52.9 Noninfective gastroenteritis and colitis, unspecified (principal); R10.11 Right upper quadrant pain
CPT/HCPCS: 74177; 80053; 81001; 83690; 84703; 85025; 85610; 85730; 96361; 96374; 96375; 99285; C9113; J1885; J2270; J7030; Q9967

== ENCOUNTER 2018-02-01 05:11 | Emergency (ER) | payer OTHER ==
[2018-02-01 05:31] VITALS: RESP 18
[2018-02-01] MEDS ORDERED: Sodium Chloride 0.9% 500 ML IV ONE (05:38)
[2018-02-01] MEDS ORDERED: Iohexol 240 (50 ml) PO ONE (05:49)
--- NOTE | 2018-02-01 05:58 | C.PDOC ---
History Of Present Illness 47 year old female presents to the ED for evaluation of right upper quadrant abdominal pain which began 3 days ago. Patient states pain has started radiating to her right lower quadrant. Patient was evaluated in this ED on 01/29 and u nderwent a full workup which included CT abdomen/pelvic with contrast and interpreted as enteritis. Patient was discharged with prescription for Flagyl. She was evaluated by her PMD the following day and given a Morphine injection. Patient states her pain has persisted and she presents to the ED for further evaluation. She denies fever, chills, nausea, vomiting, diarrhea. Chief Complaint (Nursing): Abdominal Pain History Per: Patient History/Exam Limitations: no limitations Onset/Duration Of Symptoms: Days (3), Persistent Current Symptoms Are (Timing): Still Present Location Of Pain/Discomfort: RUQ, RLQ Radiation Of Pain To:: None Quality Of Discomfort: "Pain" Associated Symptoms: denies: Fever, Chills, Nausea, Vomiting, Diarrhea Additional History Per: Patient Abnormal Vaginal Bleeding: No Past Medical History Reviewed: Historical Data, Nursing Documentation, Vital Signs Vital Signs: Last Vital Signs Temp 98.1 F 02/01/18 05:21 Pulse 66 02/01/18 05:21 Resp 18 02/01/18 05:21 BP 135/83 02/01/18 05:21 Pulse Ox 98 02/01/18 05:21 - Medical History PMH: Anemia Surgical History: Appendectomy, Cholecystectomy - [facility] Procedures RESECTION OF GALLBLADDER, PERCUTANEOUS ENDOSCOPIC APPROACH (11/01/17) Family History: States: Unknown Family Hx - Social History Hx Alcohol Use: No Hx Substance Use: No - Immunization History Hx Tetanus Toxoid Vaccination: Yes Hx Influenza Vaccination: Yes Hx Pneumococcal Vaccination: No Review Of Systems Constitutional: Negative for: Fever, Chills Gastrointestinal: Positive for: Abdominal Pain (right upper and lower quadrants ). Negative for: Nausea, Vomiting, Diarrhea Physical Exam - Physical Exam Appears: Non-toxic, No Acute Distress Skin: Normal Color, Warm, Dry Head: Atraumatic, Normacephalic Eye(s): bilateral: Normal Inspection Oral Mucosa: Moist Neck: Supple Chest: Symmetrical, No Deformity, No Tenderness Cardiovascular: Rhythm Regular, No Murmur Respiratory: Normal Breath Sounds, No Rales, No Rhonchi, No Wheezing Gastrointestinal/Abdominal: Bowel Sounds (normal ), Soft, Tenderness (to right upper and lower quadrants ), Guarding (slight), No Rebound, Other (small punctate scar to epigastric and right upper quadrant s/p cholecystectomy ) Rectal: Normal Exam, Rectal Tone (normal), No Mass, No Tenderness Back: Normal Inspection, No CVA Tenderness Pelvic: Normal External Exam, Normal Speculum Exam, Normal Bimanual Exam, No Cervical Motion Tenderness Neurological/Psych: Oriented x3, Normal Speech, Normal Cognition ED Course And Treatment - Laboratory Results Result Diagrams: 02/01/18 05:58 02/01/18 05:58 O2 Sat by Pulse Oximetry: 98 (on RA) Pulse Ox Interpretation: Normal Progress Note: Bloodwork, urinalysis, and repeat CT A/P ordred. Toradol IVP and IV Fluids given. Pt reports mininmal pain improvement - pending repeat CT Disposition - Disposition Disposition Time: 06:59 Condition: STABLE Forms: [employer] (Albanian) - Clinical Impression Clinical Impression: Abdominal pain - PA / ARTS THERAPIST / Resident Statement MD/DO has reviewed & agrees with the documentation as recorded. - Scribe Statement The provider has reviewed the documentation as recorded by the Scribe (Niya Farooq) All medical record entries made by the Scribe were at my direction and personally dictated by me. I have reviewed the chart and agree that the record accurately reflects my personal performance of the history, physical exam, medical decision making, and the department course for this patient. I have also personally directed, reviewed, and agree with the discharge instructions and disposition. Physician Patient Turnover Patient Signed Over To: Mable Upton Handoff Comments: Pending repeat Abd CT and disposition
[2018-02-01 06:01] LABS: BASO % 0.4 % (0.0-2.0); EOS # 0.1 K/uL (0.0-0.7); LYMPH # 1.9 K/uL (1.0-4.3); LYMPH % 32.1 % (20.0-40.0); MEAN CELL VOLUME 84.8 fL (81.0-99.0); MEAN CORPUSCULAR HEMOGLOBIN 28.8 pg (27.0-31.0); MEAN PLATELET VOLUME 7.3 fL (7.2-11.7); MONO # 0.4 K/uL (0.0-0.8); MONO % 7.1 % (0.0-10.0); NEUT # 3.4 K/uL (1.8-7.0); NEUT % 58.4 % (50.0-75.0); RBC 4.51 Mil/uL (3.80-5.20); RED CELL DISTRIBUTION WIDTH 13.2 % (11.5-14.5); WHITE BLOOD COUNT 5.8 K/uL (4.8-10.8)
[2018-02-01 06:03] LABS: HCG,QUALITATIVE URINE NEGATIVE (NEGATIVE)
[2018-02-01 06:04] LABS: SQUAMOUS EPITHIAL 5 /hpf (0-5); URINE BILIRUBIN NEGATIVE (NEGATIVE); URINE BLOOD 1+ (NEGATIVE); URINE CLARITY Clear (Clear); URINE COLOR Yellow (YELLOW); URINE GLUCOSE (UA) NORMAL (Normal); URINE LEUKOCYTE ESTERASE NEG Leu/uL (Negative); URINE PROTEIN NEGATIVE (NEGATIVE); URINE UROBILINOGEN NORMAL mg/dL (0.2-1.0)
[2018-02-01] MEDS ORDERED: Sodium Chloride 0.9% 1,000 ML ONE (06:08)
[2018-02-01] MEDS ORDERED: Iohexol 240 (50 ml) ONE (06:08)
[2018-02-01 06:19] LABS: ALB/GLOB RATIO 1.4 (1.0-2.1); ALBUMIN 4.1 g/dL (3.5-5.0); ALT/SGPT 50 U/L (9-52); AST/SGOT 34 U/L (14-36); BLOOD UREA NITROGEN 14 mg/dL (7-17); CALCIUM 8.8 mg/dl (8.6-10.4); GFR NON-AFRICAN AMERICAN > 60; LIPASE 87 U/L (23-300)
[2018-02-01 06:25] LABS: VENOUS BLOOD GAS BASE EXCESS 2.7 mmol/L (0.0-2.0); VENOUS BLOOD GAS PCO2 50 mmHg (40-60); VENOUS BLOOD GAS PO2 37 mm/Hg (30-55); VENOUS BLOOD PH 7.37 (7.32-7.43)
[2018-02-01] MEDS ORDERED: Iodixanol 320 MG/ML 100 ML BOTTLE IV ONE (06:47)
--- NOTE | 2018-02-01 09:33 | CT ---
Date of service: 02/01/2018 PROCEDURE: CT Abdomen and Pelvis with contrast HISTORY: abd pain, RLQ COMPARISON: Abdomen pelvis CT 01/29/2018. TECHNIQUE: Following oral and intravenous contrast administration, a CT examination of the abdomen and pelvis performed from the domes of the diaphragms to the symphysis pubis with reformatted datasets provided not only axial but also sagittal and coronal series. Coronal and sagittal reformats were generated. Contrast dose: Visipaque 320, 100 cc Radiation dose: Total exam DLP = 795.19 mGy-cm. This CT exam was performed using one or more of the following dose reduction techniques: Automated exposure control, adjustment of the mA and/or kV according to patient size, and/or use of iterative reconstruction technique. FINDINGS: LOWER THORAX: Prominent cardiac silhouette. Nonspecific bilateral basilar ground-glass opacity affects bilateral lower lobes. No pleural effusion or mass appreciable bilaterally once again. LIVER: Prominent panic steatosis reiterated diffusely. No interval parenchymal pathology appreciated otherwise. No interval central intrahepatic biliary dilatation. GALLBLADDER AND BILE DUCTS: Prior cholecystectomy reiterated. PANCREAS: Unremarkable. No gross lesion or ductal dilatation. SPLEEN: Unremarkable. ADRENALS: Unremarkable. No mass. KIDNEYS AND URETERS: Mild fullness of the right greater than left renal pelves is appreciated likely a function of hydrostatic changes related to urinary bladder distension. No definite hydronephrosis bilaterally. No radiodense urolithiasis or discrete renal parenchymal mass identified bilaterally. VASCULATURE: Unremarkable. No aortic aneurysm. No aortic atherosclerotic calcification or mural plaque present. BOWEL: No bowel obstruction or suspicious bowel pattern appreciated overall. Moderate retained fecal material scattered throughout various large-bowel segments. The stomach appears unremarkable. APPENDIX: None identified in this patient reports prior appendectomy. PERITONEUM: Unremarkable. No free fluid. No free air. LYMPH NODES: Shotty pericecal lymph nodes are nonspecific. BLADDER: Unremarkable. REPRODUCTIVE: Unremarkable. BONES: No acute fracture. OTHER FINDINGS: None. IMPRESSION: 1. Relatively prominent hepatic steatosis reiterated once again diffusely without significant interval change throughout the liver. 2. Prior cholecystectomy reiterated. 3. No CT evidence of appendicitis in this patient with prior history of appendectomy in the past. 4. Mild likely hydrostatic related prominence of bilateral renal pelves related to distended urinary bladder. Clinically correlate further.
[2018-02-01 09:34] VITALS: BP 100/62; PULSE 56; TEMP 98.1; O2SAT 96
== END 2018-02-01 10:01 | disposition home or self-care (01) ==
LOC: C.ER 05:11
DX: R10.11 Right upper quadrant pain (principal)
CPT/HCPCS: 74177; 80053; 81001; 82803; 83690; 84703; 85025; 96361; 96374; 99285; J1885; J7040; Q9966; Q9967